=== PATIENT | female | born 1985 | race African-American/Black ===

== ENCOUNTER 2018-03-18 13:12 | Emergency (ER) | payer MEDICAID ==
[~2018-03-18] VITALS: Ht 167.6 cm; Wt 66.0 kg
[~2018-03-18 13:12] MED LIST: LEVO1TAB24
[2018-03-18 13:45] VITALS: BP 134/67
== END 2018-03-19 | disposition left against medical advice (07) ==
LOC: ER 13:45
DX: R51 Headache (principal); R11.0 Nausea; R63.0 Anorexia
CPT/HCPCS: 81025; 99282